=== PATIENT | male | born 1960 | race Caucasian/White ===

== ENCOUNTER 2016-12-09 07:53 | Outpatient (CLI) | payer BC ==
[2016-12-09 09:24] LABS: #Basophils 0.2 thou/uL (0.0-0.2); #Eosinphils 0.5 thou/uL (0.0-0.7); #Monocytes 0.5 thou/uL (0.11-0.59); #Neutrophils 8.4 thou/uL (1.40-6.50); %Eosinophils 4.5 % (0.0-10.0); %Monocytes 4.7 % (0.0-10.0); Hematocrit 48.3 % (42.0-52.0); Mean Platelet Volume 7.5 fL (7.4-10.4); Red Blood Cell (RBC) Count 4.98 mill/uL (4.70-6.10); White Blood Cell (WBC) Count 11.6 thou/uL (4.8-10.8)
[2016-12-09 09:34] LABS: ALT (SGPT) 24 U/L (0-55); AST (SGOT) 22 U/L (5-34); Alkaline Phosphatase 65 U/L (40-150); Anion Gap 15 mmol/L (10-20); BUN (Urea Nitrogen) 26 mg/dL (8.4-25.7); Bilirubin, Total 0.6 mg/dL (0.2-1.2); Calc. Creatinine Clearance 0 mL/min (70-130); Calcium 9.1 mg/dL (7.8-10.44); Carbon Dioxide 23 mmol/L (22-29); Chloride 106 mmol/L (98-107); Estimated GFR-MDRD 54; LDL Cholesterol, Calculated 124 mg/dL
[2016-12-09 10:46] LABS: Globulin 3.2 g/dL (2.4-3.5); Protein, Total 7.3 g/dL (6.0-8.3)
== END 2016-12-09 07:54 | disposition home or self-care (01) ==
LOC: BURLAB 07:53
PROVIDERS: ATTEND Family Medicine
DX: E78.5 Hyperlipidemia, unspecified (principal); I25.10 Atherosclerotic heart disease of native coronary artery without angina pectoris; I10 Essential (primary) hypertension
CPT/HCPCS: 36415; 80053; 80061; 84443; 85025

== ENCOUNTER 2016-12-16 11:42 | Outpatient (CLI) | payer BC ==
--- NOTE | 2016-12-16 19:43 | RAD ---
CHEST TWO VIEWS: Date: 12-16-16 FINDINGS: No prior films were available for comparison. The patient has had a prior CABG. There is blunting of the right costophrenic angle that I am presuming to be chronic, though an old film would be helpf ul. There is a vague ill-defined opacity in the left upper lobe peripherally that measures about 3 cm in size. It is about at the level of the aortic arch. A pulmonary or pleural mass is presumed given the clinical history. CT would be needed to define it further. There are no other nodular changes in the lungs. IMPRESSION: 1. 3 cm left upper lobe opacity that is presumed to be a mass. 2. Blunting of the right costophrenic angle, possibly chronic. POS: HOME
== END 2016-12-16 11:43 | disposition home or self-care (01) ==
LOC: BURRAD 11:42
PROVIDERS: ATTEND Family Medicine
DX: N40.1 Benign prostatic hyperplasia with lower urinary tract symptoms (principal); D72.829 Elevated white blood cell count, unspecified; R91.1 Solitary pulmonary nodule
CPT/HCPCS: 36415; 71020; 84153

== ENCOUNTER 2017-07-10 08:16 | Outpatient (CLI) | payer BC ==
[2017-07-10 16:50] LABS: ALT (SGPT) 17 U/L (8-55); AST (SGOT) 15 U/L (5-34); Alkaline Phosphatase 60 U/L (40-150); Anion Gap 11 mmol/L (10-20); BUN (Urea Nitrogen) 15 mg/dL (8.4-25.7); Bilirubin, Total 0.5 mg/dL (0.2-1.2); Calc. Creatinine Clearance 0 mL/min (70-130); Calcium 9.3 mg/dL (7.8-10.44); Carbon Dioxide 28 mmol/L (22-29); Cardiac Risk 3.8 (Less than 4.5); Chloride 104 mmol/L (98-107); Cholesterol 148 mg/dl (< 200 Desired); Estimated GFR-MDRD 52; Globulin 2.6 g/dL (2.4-3.5); Glucose 95 mg/dL (70-105); HDL Cholesterol 39 mg/dL (>60 Neg Risk); LDL Cholesterol, Calculated 88 mg/dL; Protein, Total 6.6 g/dL (6.0-8.3); Sodium 137 mmol/L (136-145); Triglycerides 106 mg/dL (Less than 150)
[2017-07-10 17:08] LABS: #Basophils 0.1 thou/uL (0.0-0.2); #Eosinphils 0.6 thou/uL (0.0-0.7); #Lymphocytes 2.6 thou/uL (1.20-3.40); #Monocytes 0.5 thou/uL (0.11-0.59); #Neutrophils 7.6 thou/uL (1.40-6.50); %Lymphocytes 23.2 % (21.0-51.0); %Monocytes 4.2 % (0.0-10.0); %Neutrophils 66.6 % (42.0-75.0); Hemoglobin 15.4 g/dL (14.0-18.0); Mean Corpuscular HGB CONC 33.4 g/dL (32.0-36.0); Mean Corpuscular Hemoglobin 32.7 pg (27.0-31.0); Mean Corpuscular Volume 97.9 fl (80.0-94.0); Mean Platelet Volume 8.2 fL (7.4-10.4); Platelet Count 229 thou/uL (130-400); RBC Distribution Width 12.4 % (11.5-14.5); White Blood Cell (WBC) Count 11.3 thou/uL (4.8-10.8)
== END 2017-07-10 08:17 | disposition home or self-care (01) ==
LOC: LABLEX 08:16
PROVIDERS: ATTEND Nurse Practitioner
DX: E78.5 Hyperlipidemia, unspecified (principal); I10 Essential (primary) hypertension; I25.10 Atherosclerotic heart disease of native coronary artery without angina pectoris; D72.829 Elevated white blood cell count, unspecified; N28.9 Disorder of kidney and ureter, unspecified
CPT/HCPCS: 80053; 80061; 85025

== ENCOUNTER 2020-05-29 09:35 | Emergency (ER) | payer BC, SELFPAY ==
[2020-05-29] MEDS ORDERED: Fentanyl 100 MCG/2 ML VIAL ONE (09:38)
[2020-05-29] MEDS ORDERED: Iopamidol 300 61% 100 ML VIAL FS ONE (09:38)
[2020-05-29] MEDS ORDERED: Iopamidol 370 76% 100 ML VIAL ONE (09:39)
[2020-05-29] MEDS ORDERED: Nitroglycerin 2% Ointment 1 INCH/1 GM Packet ONE (09:49)
[2020-05-29 10:02] LABS: Hemoglobin 13.4 g/dL (14.0-18.0); Mean Corpuscular HGB CONC 32.8 g/dL (32.0-36.0); Mean Corpuscular Hemoglobin 31.9 pg (27.0-31.0); Mean Corpuscular Volume 97.2 fL (78.0-98.0); Platelet Count 179 thou/uL (130-400); RBC Distribution Width 12.3 % (11.5-14.5); White Blood Cell (WBC) Count 9.6 thou/uL (4.8-10.8)
[2020-05-29 10:03] LABS: ALT (SGPT) 19 U/L (8-55); AST (SGOT) 12 U/L (5-34); Albumin 3.8 g/dL (3.4-4.8); Alkaline Phosphatase 54 U/L (40-110); Anion Gap 12 mmol/L (10-20); BUN (Urea Nitrogen) 27 mg/dL (8.4-25.7); Bilirubin, Total 0.4 mg/dL (0.2-1.2); Calc. Creatinine Clearance 0 mL/min (70-130); Calcium 8.7 mg/dL (7.8-10.44); Carbon Dioxide 21 mmol/L (23-31); Chloride 106 mmol/L (98-107); Estimated GFR-MDRD 54; Globulin 2.6 g/dL (2.4-3.5); Glucose 149 mg/dL (80-115); Lipase 29 U/L (8-78); Potassium 4.3 mmol/L (3.5-5.1); Protein, Total 6.4 g/dL (5.8-8.1); Sodium 135 mmol/L (136-145)
[2020-05-29 10:25] LABS: Band 1 % (5-11); Eosinophils 5 % (0-10); Lymphocytes 26 % (21-51); MDiff Complete? YES; Monocytes 6 % (0-10); Neutrophil 62 % (42-75); Platelet Morphology Comment Appears Adequate; RBC Morphology Normal
[2020-05-29] MEDS ORDERED: Aspirin Chewable 81 MG TAB ONE (11:10)
--- NOTE | 2020-05-29 20:45 | RAD ---
PORTABLE CHEST: Date: 05-29-2020 An AP portable film at 0947 is compared with a 07-29-19 study. FINDINGS: The heart is normal in size. The bipolar cardiac pacer remains in place as before and median sternoto my sutures trey prior surgery. There is no vascular congestion, edema, or focal pulmonary infiltrate. Slight blunting of the right costophrenic angle is chronic. A small subcentimeter nodular density in the lingula to the left of the heart was present on prior studies, and the CT that followed showed i t to be a calcified granuloma. IMPRESSION: No acute thoracic findings. POS: HOME
--- NOTE | 2020-05-29 21:37 | CT ---
CT AORTIC DISSECTION (CT ANGIO CHEST AND ABDOMEN): Date: 05-29-[address] was done after a bullous of IV contrast. Scans of the chest and abdomen were obtained along with MIP reconstructions in multiple planes. FINDINGS: Arteriosclerotic change is present throughout this patient's aorta. The great vessels originate in a normal fashion from the aortic arch. There was no evidence of dissection of the aorta itself. The pat ient has a common trunk that gives rise to both the celiac artery and the SMA. The renal arteries rylie w some calcification near their origin, in particular, there was probably some renal artery stenosis involving the proximal right renal artery. I would note that there is a somewhat wedge-shaped lucency in the lower portion of the right kidney that I do not definitely see on the 2019 scan. This could s ignify a renal infarction, however, my understanding is that the patient has no symptoms in this area , rather all of the symptoms are up in the chest. Thus, this seem unlikely to be acute. The KALEB proba bridgett feels retrogradely. There is considerable plaque with thrombus formation in the distal aorta just before the bifurcation with some of that extending into the proximal left common iliac artery causing some narrowing of its origin. On particularly scans 167 and 168 there is a suggestion of a small intimal flap in the proxim al right common iliac artery. As there appears to be no symptoms in this region, all symptoms being i n the chest, this could be chronic in origin. I do not have any prior scans to compare with in this r egion. Regarding the remainder of the scan, the thorax shows some cystic changes in some sections of the trina gs. No pulmonary mass or infiltrate or concern was seen. There are no effusions. A prior CABG is seen . There is no sign of pericardial effusion. There is probably a calcified granuloma in the right lowe r lobe. No specific thoracic abnormalities were seen. The CT of the abdomen shows a normal appearing liver, spleen, pancreas, gallbladder, adrenal glands, and no sign of renal obstruction. See comments above regarding the right kidney. There is no distention of bowel to suggest obstruction. I would note that there appears to be some ch ronic thickening in the right colon of the wall. There may have been colitis here previously. There i s no stranding around it currently and it is my understanding that the symptoms are all thoracic in n ature. This CT includes a bit of the upper pelvis, a little bit beyond the bifurcation of the aorta. In the area scanned, no acute changes were noted that are not already listed above. IMPRESSION: 1. No evidence of aortic dissection. There are abundant arteriosclerotic changes throughout the aorta . 2. There appears to be a small intimal flap in the right common iliac artery of unknown significance. There is a chance that this could be chronic, given that the symptoms are all thoracic and none are occurring in this location, from my understanding. 3. A common trunk feeds both the celiac and SMA, rather than each coming off the aorta separately. 4. The KALEB most likely fills in a retrograde fashion. 5. Mild to moderate stenosis at the origin of the right renal artery, in particular. A slightly wedge d-shaped lucency in the lower right kidney could be an infarction, but in the absence of symptoms, on e would think that this is unlikely to be acute. 6. Thickening of the wall of the right colon. More likely chronic than acute. The possibility of prio r colitis is raised. 7. Lungs are clear. Case discussed with Dr. Dominguez at 1037 05-29-2020. POS: HOME
== END 2020-05-29 11:42 | disposition short-term general hospital (02) ==
LOC: BURERS 09:35
DX: R07.9 Chest pain, unspecified (principal); I25.2 Old myocardial infarction; Z86.73 Personal history of transient ischemic attack (TIA), and cerebral infarction without residual deficits; F17.210 Nicotine dependence, cigarettes, uncomplicated; Z95.0 Presence of cardiac pacemaker; Z95.1 Presence of aortocoronary bypass graft
CPT/HCPCS: 36415; 71045; 71275; 72191; 74175; 80053; 83690; 83880; 84484; 85025; 96361; 96374; J3010; Q9967